=== PATIENT | male | born 1965 | race Caucasian/White ===

== ENCOUNTER 2020-07-07 17:25 | Inpatient (IN) | payer OTHER ==
[~2020-07-07] VITALS: Ht 180.3 cm; Wt 81.8 kg
[2020-07-07] MEDS ORDERED: MIDAZOLAM HCL 10 ML IV ONE (17:31)
[2020-07-07] MEDS ORDERED: SUCCINYLCHOLINE CHLORIDE 20 MG/ML 10ML VIAL IV ONE (17:32)
[2020-07-07] MEDS ORDERED: MIDAZOLAM DRIP 50 mg/50mL 50 ML IV ONE (17:35)
[2020-07-07] MEDS ORDERED: MIDAZOLAM HCL 5 MG/ML-1ML VIAL IV ONE ×2 (17:35→17:41)
[2020-07-07 17:40] VITALS: BP 128/104
[2020-07-07] MEDS: MIDAZOLAM DRIP 50 mg/50mL 50 ML IV SCH ×2 (18:00→21:02)
[2020-07-07] MEDS ORDERED: PIPERACILLIN-TAZOB 3.375GM 100 ML IV ONE (18:30)
[2020-07-07] MEDS ORDERED: SODIUM BICARBONATE 8.4 % INJ 50ML VIAL IV ONE (18:30)
[2020-07-07] MEDS ORDERED: SODIUM CHLORIDE 0.9% 3,050 ML IV ONE ×5 (18:30)
[2020-07-07] MEDS ORDERED: NOREPINEPHRINE 8 MG/250ML KIT 250 ML IV ONE (18:43)
[2020-07-07] MEDS ORDERED: NOREPINEPHRINE 8 MG/250ML KIT 250 ML IV SCH (18:45)
[2020-07-07 18:52] LABS: Basophils # (auto) 0 10 ^3/uL (0-0.2); Basophils % (auto) 0.3 % (0.0-2.0); Eosinophils # (auto) 0 10 ^3/uL (0-0.8); Hematocrit 41.4 % (41.0-53.0); Hemoglobin 14.1 g/dL (13.5-17.5); Lymphocytes # (auto) 1.1 10 ^3/uL (0.4-5.4); Lymphocytes % (auto) 19.1 % (10.0-50.0); Mean Corpuscular Hgb Conc. 34.1 g/dL (32.0-36.0); Monocytes # (auto) 0.3 10 ^3/uL (0-1.3); Monocytes % (auto) 5.8 % (0.0-12.0); Neutrophils # (auto) 4.4 10 ^3/uL (1.6-8.6); Neutrophils % (auto) 74.8 % (37.0-80.0); Nucleated Red Blood Cells % 0.1 %; Platelet Count (auto) 197 10^3/uL (140-450); Red Blood Cells 4.56 10^6/uL (4.5-5.90); Red Cell Distribution Width 13.3 % (11.8-14.3); White Blood Cell 5.9 10^3/uL (4.4-10.8)
[2020-07-07] MEDS ORDERED: SODIUM CHLORIDE 0.9% 2,000 ML IV ONE (19:00)
[2020-07-07] MEDS ORDERED: SODIUM CHLORIDE 0.9% 3,000 ML IV ONE (19:00)
[2020-07-07 19:09] VITALS: BP 84/28
[2020-07-07 19:11] LABS: Albumin 3.2 g/dL (3.4-5.0); Potassium 3.9 mmol/L (3.5-5.1)
[2020-07-07 19:17] LABS: BUN/Creatinine Ratio 9.6; Bilirubin, Total 0.8 mg/dL (0.2-1.0); Total Protein 5.6 g/dL (6.4-8.2)
[2020-07-07 19:27] LABS: Urine Bacteria FEW /hpf (None Seen); Urine Blood 2+ /uL (Negative); Urine Hyaline Cast MANY /lpf (0 - 2); Urine Mucus FEW (None Seen); Urine Specific Gravity 1.033 (1.001-1.035); Urine WBC 8 /hpf (0 - 3)
[2020-07-07 19:37] LABS: Alcohol, Urine < 3.0 mg/dL (0-10); Amphetamine Screen, Urine NEGATIVE (NEGATIVE); Barbiturate Scree,Urine NEGATIVE (NEGATIVE); Benzodiazephine Screen, Urine NEGATIVE (NEGATIVE); Cannabinoid Screen, Urine NEGATIVE (NEGATIVE); Cocaine Screen, Urine NEGATIVE (NEGATIVE); Opiate Scree,Urine NEGATIVE (NEGATIVE); Phencyclidine Screen, Urine NEGATIVE (NEGATIVE)
[2020-07-07 19:47] LABS: CRP High Sensitivity 0.29 mg/dL (< 0.3)
[2020-07-07 19:57] LABS: Lactic Acid w/Reflex 5.3 mmol/L (0.4-2.0)
[2020-07-07 20:30] VITALS: BP 93/54
[2020-07-07] MEDS: NOREPINEPHRINE BITARTRATE 16 MG in SODIUM CHL 0.9% 250 ML IV SCH (21:01)
[2020-07-07] MEDS ORDERED: VANCOMYCIN PER PHARMACY 0 MG IV SCH (21:15)
[2020-07-07] MEDS ORDERED: DEXTROSE (50%) 50ML SYRG IV PRN (21:15)
[2020-07-07] MEDS ORDERED: NITROGLYCERIN 0.4 MG SL TAB SL PRN (21:15)
[2020-07-07] MEDS ORDERED: MORPHINE SULF INJ 2 MG/ML SYRINGE 1ML IV PRN (21:15)
[2020-07-07] MEDS ORDERED: ONDANSETRON HCL 4 MG/2 ML VIAL IV PRN (21:15)
[2020-07-07] MEDS ORDERED: VANCOMYCIN 1GM/250ML 250 ML IV ONE (21:30)
[2020-07-07 22:04] LABS: Anion Gap 8 (5-15); BUN/Creatinine Ratio 10.8; Blood Urea Nitrogen 28 mg/dL (7-18); Calcium 6.6 mg/dL (8.5-10.1); Carbon Dioxide 21 mmol/L (21-32); Chloride 105 mmol/L (98-107); GFR African American 33 mL/min; GFR Non-African American 28 mL/min; Glucose 170 mg/dL (74-106); Potassium 3.9 mmol/L (3.5-5.1); Sodium 134 mmol/L (136-145)
[2020-07-07 22:20] VITALS: BP 100/56
[2020-07-07] MEDS: SODIUM CHLORIDE 0.9% 1,000 ML IV SCH (22:26)
[2020-07-07] MEDS: ATORVASTATIN 20 MG TAB PO SCH (22:27)
[2020-07-07] MEDS ORDERED: ENOXAPARIN SOD 100 MG/1 ML SYRINGE SC SCH (22:30)
[2020-07-07 22:42] LABS: INR 1.24 (0.9-1.15); Partial Thromboplastin Time 23.4 sec (23.0-31.2)
[2020-07-07] MEDS ORDERED: HEPARIN DRIP/D5W 100UNITS/ML 250 ML IV SCH ×2 (23:00)
[2020-07-07] MEDS ORDERED: HEPARIN SODIUM (PORCINE) 5000 UNITS/ML 1ML VIAL IV ONE (23:00)
[2020-07-07] MEDS: fentaNYL Drip 2500mCg/250mlNS 250 ML IV SCH (23:50)
[2020-07-07] MEDS: PIPERACILLIN-TAZOB 2.25GM 50 ML IV SCH (23:58)
[2020-07-08] VITALS (40 sets, daily range): BP systolic 82–116; BP diastolic 47–71
[2020-07-08] MEDS: ACCU-CHEK COMFORT CURVE STRIP VI SCH ×4 (00:13→17:21)
[2020-07-08] MEDS: InsuLIN REG 1unit/0.01ml Soln (100units/ml) SC SCH ×4 (00:13→18:36)
[2020-07-08] MEDS: MIDAZOLAM DRIP 50 mg/50mL 50 ML IV SCH ×2 (01:48→23:13)
[2020-07-08 05:58] LABS: Albumin 3.1 g/dL (3.4-5.0); BUN/Creatinine Ratio 19.7; Calcium 6.4 mg/dL (8.5-10.1)
[2020-07-08 05:59] LABS: Potassium 2.7 mmol/L (3.5-5.1)
[2020-07-08 06:07] LABS: Bilirubin, Total 2.1 mg/dL (0.2-1.0); Total Protein 5.8 g/dL (6.4-8.2)
[2020-07-08] MEDS: PIPERACILLIN-TAZOB 2.25GM 50 ML IV SCH ×3 (06:45→17:21)
[2020-07-08] MEDS: PHENYLEPHRINE INJ 40 MG in SODIUM CHL 0.9% 250 ML IV SCH ×2 (07:31→12:15)
[2020-07-08] MEDS: POTASSIUM CHL 20MEQ/100ML 100 ML IV SCH ×2 (07:42→09:39)
[2020-07-08] MEDS: SODIUM CHLORIDE 0.9% 1,000 ML IV SCH ×2 (07:42→17:07)
[2020-07-08 08:01] LABS: Basophils # (auto) 0 10 ^3/uL (0-0.2); Basophils % (auto) 0.1 % (0.0-2.0); Eosinophils # (auto) 0 10 ^3/uL (0-0.8); Hematocrit 42.8 % (41.0-53.0); Hemoglobin 14.5 g/dL (13.5-17.5); Lymphocytes # (auto) 0.6 10 ^3/uL (0.4-5.4); Mean Corpuscular Hemoglobin 30.5 pg (28.0-32.0); Mean Corpuscular Hgb Conc. 33.9 g/dL (32.0-36.0); Mean Corpuscular Volume 89.9 fL (80.0-100.0); Monocytes # (auto) 1.5 10 ^3/uL (0-1.3); Monocytes % (auto) 12.8 % (0.0-12.0); Neutrophils % (auto) 82.1 % (37.0-80.0); Nucleated Red Blood Cells % 0.1 %; Platelet Count (auto) 91 10^3/uL (140-450); Red Blood Cells 4.76 10^6/uL (4.5-5.90); Red Cell Distribution Width 13.4 % (11.8-14.3); White Blood Cell 12.1 10^3/uL (4.4-10.8)
[2020-07-08 08:23] LABS: Magnesium 1.9 mg/dL (1.6-2.6)
[2020-07-08] MEDS ORDERED: POTASSIUM EFFERVESENT TAB 25 MEQ GT ONE (08:30)
[2020-07-08] MEDS ORDERED: SODIUM CHLORIDE 0.9% 1,000 ML IV ONE (08:45)
[2020-07-08] MEDS: ASPirin 81 mg TAB PO SCH (09:04)
[2020-07-08 09:23] LABS: INR 2.01 (0.9-1.15)
[2020-07-08 09:26] LABS: Partial Thromboplastin Time > 139.0 sec (23.0-31.2)
[2020-07-08] MEDS: VANCOMYCIN 1GM/250ML 250 ML IV SCH ×2 (11:09→23:13)
[2020-07-08] MEDS ORDERED: SODIUM BICARBONATE 50ML VIAL 150 ML in SODIUM CHL 0.9% 1,000 ML IV ONE (12:00)
[2020-07-08] MEDS ORDERED: SODIUM BICARBONATE 50ML VIAL 150 ML in SODIUM CHLORIDE 0.9% 1,000 ML IV ONE (12:15)
[2020-07-08] MEDS ORDERED: IOHEXOL 350 MG/ML 100ML IJ ONE (12:20)
[2020-07-08] MEDS: fentaNYL Drip 2500mCg/250mlNS 250 ML IV SCH (19:00)
[2020-07-08] MEDS ORDERED: SODIUM BICARBONATE 50ML VIAL 75 ML in SOD CHL 0.45% 1,000 ML IV SCH (19:15)
[2020-07-08 23:04] LABS: Basophils # (auto) 0 10 ^3/uL (0-0.2); Eosinophils # (auto) 0 10 ^3/uL (0-0.8); Hemoglobin 12.1 g/dL (13.5-17.5); Neutrophils # (auto) 11.8 10 ^3/uL (1.6-8.6); Neutrophils % (auto) 81.2 % (37.0-80.0); White Blood Cell 14.5 10^3/uL (4.4-10.8)
[2020-07-08 23:07] LABS: Basophils % (auto) 0.1 % (0.0-2.0); Hematocrit 34.9 % (41.0-53.0); Lymphocytes # (auto) 1.3 10 ^3/uL (0.4-5.4); Lymphocytes % (auto) 8.9 % (10.0-50.0); Mean Corpuscular Hemoglobin 31.6 pg (28.0-32.0); Mean Corpuscular Hgb Conc. 34.8 g/dL (32.0-36.0); Mean Corpuscular Volume 90.8 fL (80.0-100.0); Monocytes # (auto) 1.4 10 ^3/uL (0-1.3); Monocytes % (auto) 9.8 % (0.0-12.0); Platelet Count (auto) 66 10^3/uL (140-450); Red Blood Cells 3.84 10^6/uL (4.5-5.90); Red Cell Distribution Width 13.7 % (11.8-14.3)
[2020-07-08] MEDS: ATORVASTATIN 20 MG TAB PO SCH (23:14)
[2020-07-08] MEDS: ACETAMINOPHEN 325 MG TAB PO PRN (23:15)
[2020-07-09] VITALS (92 sets, daily range): BP systolic 74–120; BP diastolic 41–72
[2020-07-09] MEDS: PIPERACILLIN-TAZOB 2.25GM 50 ML IV SCH ×4 (00:24→13:05)
[2020-07-09] MEDS: ACCU-CHEK COMFORT CURVE STRIP VI SCH ×4 (00:25→17:43)
[2020-07-09] MEDS: SODIUM CHLORIDE 0.9% 1,000 ML IV SCH ×4 (01:44→12:45)
[2020-07-09] MEDS: NOREPINEPHRINE BITARTRATE 16 MG in SODIUM CHL 0.9% 250 ML IV SCH ×3 (01:59→21:55)
[2020-07-09 04:46] LABS: Eosinophils # (auto) 0 10 ^3/uL (0-0.8); Hemoglobin 13.2 g/dL (13.5-17.5); Monocytes # (auto) 1.4 10 ^3/uL (0-1.3); Platelet Count (auto) 56 10^3/uL (140-450)
[2020-07-09 04:48] LABS: Basophils # (auto) 0.1 10 ^3/uL (0-0.2); Basophils % (auto) 0.4 % (0.0-2.0); Hematocrit 39.6 % (41.0-53.0); Lymphocytes # (auto) 1.5 10 ^3/uL (0.4-5.4); Lymphocytes % (auto) 9.6 % (10.0-50.0); Mean Corpuscular Hemoglobin 30.8 pg (28.0-32.0); Mean Corpuscular Hgb Conc. 33.4 g/dL (32.0-36.0); Mean Corpuscular Volume 92.1 fL (80.0-100.0); Monocytes % (auto) 9.3 % (0.0-12.0); Neutrophils # (auto) 12.5 10 ^3/uL (1.6-8.6); Neutrophils % (auto) 80.7 % (37.0-80.0); Nucleated Red Blood Cells % 0.1 %; Red Blood Cells 4.29 10^6/uL (4.5-5.90); Red Cell Distribution Width 14.1 % (11.8-14.3); White Blood Cell 15.4 10^3/uL (4.4-10.8)
[2020-07-09 05:06] LABS: Calcium 6.1 mg/dL (8.5-10.1); Potassium 3.9 mmol/L (3.5-5.1)
[2020-07-09] MEDS: InsuLIN REG 1unit/0.01ml Soln (100units/ml) SC SCH ×4 (05:31→17:43)
[2020-07-09] MEDS: MIDAZOLAM DRIP 50 mg/50mL 50 ML IV SCH ×2 (05:32→10:14)
[2020-07-09] MEDS ORDERED: ETAN25IN3 SC (07:30)
[2020-07-09] MEDS ORDERED: ATOR20TA50 PO (07:30)
[2020-07-09] MEDS ORDERED: METF-370 PO (07:30)
[2020-07-09] MEDS ORDERED: CHOL100055 PO (07:30)
[2020-07-09] MEDS: PHENYLEPHRINE INJ 40 MG in SODIUM CHL 0.9% 250 ML IV SCH (08:51)
[2020-07-09] MEDS: ASPirin 81 mg TAB PO SCH (09:57)
[2020-07-09] MEDS: ACETAMINOPHEN 325 MG TAB PO PRN ×2 (10:20→22:26)
[2020-07-09] MEDS: VANCOMYCIN 1GM/250ML 250 ML IV SCH ×2 (11:26→21:00)
[2020-07-09] MEDS ORDERED: PANTOPRAZOLE 40 MG/10 ML VIAL INJ IV ONE (12:45)
[2020-07-09] MEDS: PIPERACILLIN-TAZOB 3.375GM 100 ML IV SCH (18:04)
[2020-07-09 19:16] LABS: INR 1.84 (0.9-1.15); Partial Thromboplastin Time 35.6 sec (23.0-31.2)
[2020-07-09] MEDS: ATORVASTATIN 20 MG TAB PO SCH (21:51)
[2020-07-09] MEDS: fentaNYL Drip 2500mCg/250mlNS 250 ML IV SCH (21:54)
[2020-07-10] VITALS (98 sets, daily range): BP systolic 104–146; BP diastolic 56–77
[2020-07-10] MEDS: SODIUM CHLORIDE 0.9% 1,000 ML IV SCH ×6 (03:45→23:45)
[2020-07-10] MEDS: PIPERACILLIN-TAZOB 3.375GM 100 ML IV SCH ×4 (05:25→17:43)
[2020-07-10] MEDS: ACCU-CHEK COMFORT CURVE STRIP VI SCH ×4 (05:26→17:47)
[2020-07-10] MEDS: InsuLIN REG 1unit/0.01ml Soln (100units/ml) SC SCH ×4 (05:27→17:47)
[2020-07-10] MEDS: VANCOMYCIN 1GM/250ML 250 ML IV SCH ×2 (06:38→16:38)
[2020-07-10 08:16] LABS: Basophils # (auto) 0 10 ^3/uL (0-0.2); Basophils % (auto) 0.2 % (0.0-2.0); Eosinophils # (auto) 0 10 ^3/uL (0-0.8); Mean Corpuscular Hemoglobin 31.4 pg (28.0-32.0); Monocytes # (auto) 0.6 10 ^3/uL (0-1.3); Platelet Count (auto) 48 10^3/uL (140-450); Red Cell Distribution Width 13.7 % (11.8-14.3)
[2020-07-10 08:18] LABS: Hematocrit 31.1 % (41.0-53.0); Hemoglobin 10.8 g/dL (13.5-17.5); Lymphocytes # (auto) 1.2 10 ^3/uL (0.4-5.4); Lymphocytes % (auto) 13.1 % (10.0-50.0); Mean Corpuscular Hgb Conc. 34.8 g/dL (32.0-36.0); Mean Corpuscular Volume 90.2 fL (80.0-100.0); Monocytes % (auto) 6.8 % (0.0-12.0); Neutrophils # (auto) 7.3 10 ^3/uL (1.6-8.6); Neutrophils % (auto) 79.9 % (37.0-80.0); Red Blood Cells 3.44 10^6/uL (4.5-5.90); White Blood Cell 9.2 10^3/uL (4.4-10.8)
[2020-07-10 08:30] LABS: Albumin 2.1 g/dL (3.4-5.0); BUN/Creatinine Ratio 19.3; Calcium 6.7 mg/dL (8.5-10.1); Potassium 3.4 mmol/L (3.5-5.1)
[2020-07-10 08:33] LABS: Bilirubin, Total 1.1 mg/dL (0.2-1.0); Total Protein 4.4 g/dL (6.4-8.2)
[2020-07-10] MEDS ORDERED: POTASSIUM CHL 20MEQ/100ML 100 ML IV ONE (09:45)
[2020-07-10] MEDS: PANTOPRAZOLE 40 MG/10 ML VIAL INJ IV SCH (09:56)
[2020-07-10] MEDS: ASPirin 81 mg TAB PO SCH (10:00)
[2020-07-10] MEDS: NOREPINEPHRINE BITARTRATE 16 MG in SODIUM CHL 0.9% 250 ML IV SCH (10:02)
[2020-07-10] MEDS: PHENYLEPHRINE INJ 40 MG in SODIUM CHL 0.9% 250 ML IV SCH (14:21)
[2020-07-10] MEDS: MIDAZOLAM DRIP 50 mg/50mL 50 ML IV SCH (17:40)
[2020-07-10] MEDS: ACETAMINOPHEN 325 MG TAB PO PRN (17:43)
[2020-07-10] MEDS: fentaNYL Drip 2500mCg/250mlNS 250 ML IV SCH (21:46)
[2020-07-11] VITALS (103 sets, daily range): BP systolic 93–175; BP diastolic 50–97
[2020-07-11] MEDS: PIPERACILLIN-TAZOB 3.375GM 100 ML IV SCH ×5 (00:12→23:39)
[2020-07-11] MEDS: ACCU-CHEK COMFORT CURVE STRIP VI SCH ×5 (00:12→23:38)
[2020-07-11] MEDS: SODIUM CHLORIDE 0.9% 1,000 ML IV SCH ×2 (00:14→00:16)
[2020-07-11] MEDS: VANCOMYCIN 1GM/250ML 250 ML IV SCH ×3 (03:00→22:12)
[2020-07-11 05:43] LABS: Calcium 6.9 mg/dL (8.5-10.1); Potassium 3.3 mmol/L (3.5-5.1)
[2020-07-11] MEDS: InsuLIN REG 1unit/0.01ml Soln (100units/ml) SC SCH ×6 (06:00→23:38)
[2020-07-11] MEDS: PHENYLEPHRINE INJ 40 MG in SODIUM CHL 0.9% 250 ML IV SCH (07:01)
[2020-07-11] MEDS: POTASSIUM CHL 20MEQ/100ML 100 ML IV SCH ×2 (09:50→12:03)
[2020-07-11] MEDS: ASPirin 81 mg TAB PO SCH (10:42)
[2020-07-11] MEDS: PANTOPRAZOLE 40 MG/10 ML VIAL INJ IV SCH (10:42)
[2020-07-11] MEDS: SOD CHL 0.9%/ KCL 20MEQ 1,000 ML IV SCH ×3 (12:03→22:12)
[2020-07-11] MEDS: MIDAZOLAM DRIP 50 mg/50mL 50 ML IV SCH (17:40)
[2020-07-11] MEDS ORDERED: DEXTROSE 10% 1,000 ML IV ONE (18:30)
[2020-07-11] MEDS: ACETAMINOPHEN 325 MG TAB PO PRN (20:25)
[2020-07-11] MEDS: fentaNYL Drip 2500mCg/250mlNS 250 ML IV SCH (22:58)
[2020-07-12] VITALS (51 sets, daily range): BP systolic 105–161; BP diastolic 54–93
[2020-07-12 03:09] LABS: Basophils # (auto) 0 10 ^3/uL (0-0.2); Basophils % (auto) 0.2 % (0.0-2.0); Eosinophils # (auto) 0 10 ^3/uL (0-0.8); Eosinophils % (auto) 0.1 % (0.0-7.0); Hematocrit 26.5 % (41.0-53.0); Hemoglobin 9.3 g/dL (13.5-17.5); Lymphocytes # (auto) 0.7 10 ^3/uL (0.4-5.4); Lymphocytes % (auto) 13.3 % (10.0-50.0); Mean Corpuscular Hgb Conc. 35.1 g/dL (32.0-36.0); Mean Corpuscular Volume 91.3 fL (80.0-100.0); Monocytes # (auto) 0.4 10 ^3/uL (0-1.3); Neutrophils # (auto) 4.2 10 ^3/uL (1.6-8.6); Neutrophils % (auto) 78.4 % (37.0-80.0); Platelet Count (auto) 82 10^3/uL (140-450); Red Cell Distribution Width 13.2 % (11.8-14.3); White Blood Cell 5.3 10^3/uL (4.4-10.8)
[2020-07-12 03:25] LABS: BUN/Creatinine Ratio 16.3; Magnesium 1.6 mg/dL (1.6-2.6); Potassium 3.2 mmol/L (3.5-5.1)
[2020-07-12 03:30] LABS: Phosphorus 1.5 mg/dL (2.5-4.90)
[2020-07-12] MEDS: VANCOMYCIN 1GM/250ML 250 ML IV SCH ×3 (05:31→20:35)
[2020-07-12] MEDS: InsuLIN REG 1unit/0.01ml Soln (100units/ml) SC SCH ×3 (05:32→18:00)
[2020-07-12] MEDS: PIPERACILLIN-TAZOB 3.375GM 100 ML IV SCH ×4 (05:32→23:45)
[2020-07-12] MEDS: ACCU-CHEK COMFORT CURVE STRIP VI SCH ×4 (05:32→23:45)
[2020-07-12] MEDS: POTASSIUM CHL 20MEQ/100ML 100 ML IV SCH ×3 (09:00→13:00)
[2020-07-12] MEDS ORDERED: MAGNESIUM SULFATE 1GM/100ML 100 ML IV ONE (09:00)
[2020-07-12] MEDS: ASPirin 81 mg TAB PO SCH (10:00)
[2020-07-12] MEDS: PANTOPRAZOLE 40 MG/10 ML VIAL INJ IV SCH (10:00)
[2020-07-12] MEDS: SOD CHL 0.9%/ KCL 20MEQ 1,000 ML IV SCH ×2 (10:49→13:30)
[2020-07-12] MEDS ORDERED: POTASSIUM PHOSPHATE 44 MEQ in D5W 5% 250 ML IV ONE (11:45)
[2020-07-12] MEDS: MIDAZOLAM DRIP 50 mg/50mL 50 ML IV SCH (17:40)
[2020-07-12] MEDS: fentaNYL Drip 2500mCg/250mlNS 250 ML IV SCH (20:35)
[2020-07-12] MEDS: ACETAMINOPHEN 325 MG TAB PO PRN (20:49)
[2020-07-13] VITALS (48 sets, daily range): BP systolic 119–165; BP diastolic 69–100
[2020-07-13] MEDS: VANCOMYCIN 1GM/250ML 250 ML IV SCH ×4 (02:40→19:46)
[2020-07-13] MEDS: PIPERACILLIN-TAZOB 3.375GM 100 ML IV SCH ×4 (05:13→23:52)
[2020-07-13 05:48] LABS: Basophils # (auto) 0 10 ^3/uL (0-0.2); Basophils % (auto) 0.1 % (0.0-2.0); Eosinophils # (auto) 0 10 ^3/uL (0-0.8); Eosinophils % (auto) 0.2 % (0.0-7.0); Hematocrit 28.3 % (41.0-53.0); Lymphocytes # (auto) 0.5 10 ^3/uL (0.4-5.4); Mean Corpuscular Hemoglobin 31.7 pg (28.0-32.0); Mean Corpuscular Hgb Conc. 35.2 g/dL (32.0-36.0); Mean Corpuscular Volume 90.1 fL (80.0-100.0); Monocytes # (auto) 0.6 10 ^3/uL (0-1.3); Monocytes % (auto) 10.2 % (0.0-12.0); Neutrophils # (auto) 4.6 10 ^3/uL (1.6-8.6); Neutrophils % (auto) 81.5 % (37.0-80.0); Platelet Count (auto) 130 10^3/uL (140-450); Red Blood Cells 3.14 10^6/uL (4.5-5.90); Red Cell Distribution Width 13.2 % (11.8-14.3); White Blood Cell 5.7 10^3/uL (4.4-10.8)
[2020-07-13] MEDS: InsuLIN REG 1unit/0.01ml Soln (100units/ml) SC SCH ×5 (06:00→23:59)
[2020-07-13] MEDS: SOD CHL 0.9%/ KCL 20MEQ 1,000 ML IV SCH ×2 (06:10→10:45)
[2020-07-13 06:11] LABS: Calcium 7.7 mg/dL (8.5-10.1); Potassium 3.7 mmol/L (3.5-5.1)
[2020-07-13 06:12] LABS: INR 1.08 (0.9-1.15); Partial Thromboplastin Time 22.5 sec (23.0-31.2)
[2020-07-13 06:13] LABS: BUN/Creatinine Ratio 6.3; Phosphorus 2.2 mg/dL (2.5-4.90)
[2020-07-13] MEDS: ACCU-CHEK COMFORT CURVE STRIP VI SCH ×4 (06:14→23:51)
[2020-07-13] MEDS ORDERED: POTASSIUM PHOSPHATE 22 MEQ in SODIUM CHL 0.9% 100 ML IV ONE (08:30)
[2020-07-13] MEDS ORDERED: LIDOCAINE 2%HCL (LOCAL ANESTH.) INJ 20ML MDV ONE (08:38)
[2020-07-13] MEDS ORDERED: KCL 20 MEQ IV SCH (08:45)
[2020-07-13] MEDS ORDERED: SOD CHL IV SCH (08:45)
[2020-07-13] MEDS ORDERED: POTASSIUM CHLORIDE IV SCH (08:45)
[2020-07-13] MEDS ORDERED: fentaNYL CITRATE 100 MCG/2 ML VL ONE (09:42)
[2020-07-13] MEDS ORDERED: HEPARIN SODIUM (PORCINE) 5000 UNITS/ML 1ML VIAL ONE (09:42)
[2020-07-13] MEDS ORDERED: ANGIOMAX 250 MG VIAL IV ONE (09:42)
[2020-07-13] MEDS ORDERED: VERAPAMIL 2.5MG/ML INJ 2ML VIAL IV ONE (09:42)
[2020-07-13] MEDS ORDERED: MIDAZOLAM HCL 1MG/1ML-2 ML VIAL ONE (09:43)
[2020-07-13] MEDS ORDERED: SODIUM CHL 0.9% 0 ML ONE (09:43)
[2020-07-13] MEDS: ASPirin 81 mg TAB PO SCH (10:00)
[2020-07-13] MEDS: PANTOPRAZOLE 40 MG/10 ML VIAL INJ IV SCH (10:00)
[2020-07-13] MEDS ORDERED: POTASSIUM CHL 10MEQ/100ML 100 ML IV ONE (11:00)
[2020-07-13] MEDS ORDERED: DOCUSATE SOD 100 MG CAP PO PRN (13:00)
[2020-07-13] MEDS: SENNA 8.6 MG TAB PO PRN (16:11)
[2020-07-13] MEDS: MIDAZOLAM DRIP 50 mg/50mL 50 ML IV SCH (17:40)
[2020-07-14] VITALS (22 sets, daily range): BP systolic 60–156; BP diastolic 26–94
[2020-07-14] MEDS: VANCOMYCIN 1GM/250ML 250 ML IV SCH ×4 (01:35→19:54)
[2020-07-14] MEDS: SOD CHL 0.9%/ KCL 20MEQ 1,000 ML IV SCH ×2 (03:25→20:05)
[2020-07-14] MEDS: ACCU-CHEK COMFORT CURVE STRIP VI SCH ×3 (05:30→17:38)
[2020-07-14] MEDS: PIPERACILLIN-TAZOB 3.375GM 100 ML IV SCH ×3 (05:31→17:35)
[2020-07-14] MEDS: InsuLIN REG 1unit/0.01ml Soln (100units/ml) SC SCH ×3 (05:42→17:38)
[2020-07-14 06:17] LABS: Basophils # (auto) 0 10 ^3/uL (0-0.2); Basophils % (auto) 0.1 % (0.0-2.0); Eosinophils # (auto) 0 10 ^3/uL (0-0.8); Eosinophils % (auto) 0.7 % (0.0-7.0); Hematocrit 28.9 % (41.0-53.0); Hemoglobin 10.1 g/dL (13.5-17.5); Lymphocytes # (auto) 0.5 10 ^3/uL (0.4-5.4); Lymphocytes % (auto) 7.6 % (10.0-50.0); Mean Corpuscular Hemoglobin 31.8 pg (28.0-32.0); Mean Corpuscular Hgb Conc. 34.8 g/dL (32.0-36.0); Mean Corpuscular Volume 91.2 fL (80.0-100.0); Monocytes # (auto) 0.7 10 ^3/uL (0-1.3); Monocytes % (auto) 9.9 % (0.0-12.0); Neutrophils # (auto) 5.6 10 ^3/uL (1.6-8.6); Neutrophils % (auto) 81.7 % (37.0-80.0); Platelet Count (auto) 213 10^3/uL (140-450); Red Blood Cells 3.17 10^6/uL (4.5-5.90); Red Cell Distribution Width 13.2 % (11.8-14.3); White Blood Cell 6.8 10^3/uL (4.4-10.8)
[2020-07-14 06:37] LABS: BUN/Creatinine Ratio 6.8; Calcium 7.6 mg/dL (8.5-10.1); Potassium 3.9 mmol/L (3.5-5.1)
[2020-07-14] MEDS: ASPirin 81 mg TAB PO SCH (09:42)
[2020-07-14] MEDS: PANTOPRAZOLE 40 MG/10 ML VIAL INJ IV SCH (09:43)
[2020-07-15] MEDS: PIPERACILLIN-TAZOB 3.375GM 100 ML IV SCH ×4 (00:22→19:57)
[2020-07-15] MEDS: ACCU-CHEK COMFORT CURVE STRIP VI SCH ×4 (00:22→19:57)
[2020-07-15] MEDS: VANCOMYCIN 1GM/250ML 250 ML IV SCH ×4 (01:43→21:51)
[2020-07-15 05:40] VITALS: BP 133/81
[2020-07-15] MEDS: InsuLIN REG 1unit/0.01ml Soln (100units/ml) SC SCH ×4 (06:00→18:00)
[2020-07-15 07:18] LABS: Basophils # (auto) 0 10 ^3/uL (0-0.2); Basophils % (auto) 0.2 % (0.0-2.0); Eosinophils # (auto) 0.1 10 ^3/uL (0-0.8); Hematocrit 29.6 % (41.0-53.0); Hemoglobin 10.4 g/dL (13.5-17.5); Lymphocytes # (auto) 0.6 10 ^3/uL (0.4-5.4); Lymphocytes % (auto) 8.6 % (10.0-50.0); Mean Corpuscular Hemoglobin 32.1 pg (28.0-32.0); Mean Corpuscular Volume 91.7 fL (80.0-100.0); Monocytes # (auto) 0.6 10 ^3/uL (0-1.3); Monocytes % (auto) 9.4 % (0.0-12.0); Neutrophils # (auto) 5.4 10 ^3/uL (1.6-8.6); Neutrophils % (auto) 80.8 % (37.0-80.0); Platelet Count (auto) 239 10^3/uL (140-450); Potassium 3.9 mmol/L (3.5-5.1); Red Blood Cells 3.23 10^6/uL (4.5-5.90); Red Cell Distribution Width 13.5 % (11.8-14.3); White Blood Cell 6.7 10^3/uL (4.4-10.8)
[2020-07-15 07:22] LABS: BUN/Creatinine Ratio 8.2; Calcium 7.9 mg/dL (8.5-10.1)
[2020-07-15 09:00] VITALS: BP 140/77
[2020-07-15] MEDS: ASPirin 81 mg TAB PO SCH (10:29)
[2020-07-15] MEDS: PANTOPRAZOLE 40 MG/10 ML VIAL INJ IV SCH (10:29)
[2020-07-15] MEDS ORDERED: LIDOCAINE 2% JELLY 11ml (GLYDO) UR ONE (12:00)
[2020-07-15 13:00] VITALS: BP 151/93
[2020-07-15] MEDS: SOD CHL 0.9%/ KCL 20MEQ 1,000 ML IV SCH (13:25)
[2020-07-15] MEDS ORDERED: LIDOCAINE 2%HCL (LOCAL ANESTH.) INJ 20ML MDV ONE (18:15)
[2020-07-15 22:00] VITALS: BP 145/88
[2020-07-16] MEDS: PIPERACILLIN-TAZOB 3.375GM 100 ML IV SCH ×4 (00:31→17:47)
[2020-07-16] MEDS: ACCU-CHEK COMFORT CURVE STRIP VI SCH ×4 (00:32→17:47)
[2020-07-16] MEDS: VANCOMYCIN 1GM/250ML 250 ML IV SCH ×3 (02:43→16:07)
[2020-07-16 05:00] VITALS: BP 140/81
[2020-07-16] MEDS: InsuLIN REG 1unit/0.01ml Soln (100units/ml) SC SCH ×4 (06:00→18:00)
[2020-07-16] MEDS: SOD CHL 0.9%/ KCL 20MEQ 1,000 ML IV SCH ×2 (07:05→22:00)
[2020-07-16 07:12] LABS: Basophils # (auto) 0 10 ^3/uL (0-0.2); Basophils % (auto) 0.3 % (0.0-2.0); Eosinophils # (auto) 0.1 10 ^3/uL (0-0.8); Hematocrit 29.2 % (41.0-53.0); Lymphocytes # (auto) 0.6 10 ^3/uL (0.4-5.4); Lymphocytes % (auto) 9.8 % (10.0-50.0); Mean Corpuscular Hemoglobin 31.5 pg (28.0-32.0); Mean Corpuscular Hgb Conc. 34.4 g/dL (32.0-36.0); Mean Corpuscular Volume 91.6 fL (80.0-100.0); Monocytes # (auto) 0.6 10 ^3/uL (0-1.3); Monocytes % (auto) 9.8 % (0.0-12.0); Neutrophils # (auto) 4.6 10 ^3/uL (1.6-8.6); Neutrophils % (auto) 79.1 % (37.0-80.0); Nucleated Red Blood Cells % 0.2 %; Platelet Count (auto) 288 10^3/uL (140-450); Red Blood Cells 3.18 10^6/uL (4.5-5.90); Red Cell Distribution Width 13.5 % (11.8-14.3); White Blood Cell 5.9 10^3/uL (4.4-10.8)
[2020-07-16 07:32] LABS: Calcium 7.9 mg/dL (8.5-10.1); Potassium 3.7 mmol/L (3.5-5.1)
[2020-07-16 07:34] LABS: BUN/Creatinine Ratio 7.9
[2020-07-16 09:00] VITALS: BP 147/86
[2020-07-16] MEDS: PANTOPRAZOLE 40 MG/10 ML VIAL INJ IV SCH (10:58)
[2020-07-16] MEDS: ASPirin 81 mg TAB PO SCH (10:58)
[2020-07-16 13:00] VITALS: BP 153/83
[2020-07-16 17:00] VITALS: BP 131/79
[2020-07-16 21:08] VITALS: BP 135/73
[2020-07-17] MEDS: PIPERACILLIN-TAZOB 3.375GM 100 ML IV SCH ×4 (00:05→17:44)
[2020-07-17] MEDS: ACCU-CHEK COMFORT CURVE STRIP VI SCH ×4 (00:06→17:45)
[2020-07-17] MEDS: VANCOMYCIN 1GM/250ML 250 ML IV SCH ×2 (04:20→16:41)
[2020-07-17 05:07] VITALS: BP 148/86
[2020-07-17] MEDS: InsuLIN REG 1unit/0.01ml Soln (100units/ml) SC SCH ×4 (06:00→17:44)
[2020-07-17 09:00] VITALS: BP 143/88
[2020-07-17] MEDS: PANTOPRAZOLE 40 MG/10 ML VIAL INJ IV SCH (09:32)
[2020-07-17] MEDS: ASPirin 81 mg TAB PO SCH (09:32)
[2020-07-17 13:00] VITALS: BP 128/74
[2020-07-17] MEDS: SOD CHL 0.9%/ KCL 20MEQ 1,000 ML IV SCH (15:01)
[2020-07-17 17:00] VITALS: BP 148/89
[2020-07-17 22:00] VITALS: BP 143/78
[2020-07-18] MEDS: ACCU-CHEK COMFORT CURVE STRIP VI SCH ×4 (00:10→18:29)
[2020-07-18] MEDS: PIPERACILLIN-TAZOB 3.375GM 100 ML IV SCH ×2 (00:10→06:09)
[2020-07-18] MEDS: VANCOMYCIN 1GM/250ML 250 ML IV SCH (04:13)
[2020-07-18 05:00] VITALS: BP 141/88
[2020-07-18] MEDS: InsuLIN REG 1unit/0.01ml Soln (100units/ml) SC SCH ×4 (06:00→18:00)
[2020-07-18 06:43] LABS: Albumin 2.5 g/dL (3.4-5.0); Potassium 4.1 mmol/L (3.5-5.1)
[2020-07-18 06:46] LABS: Bilirubin, Total 0.6 mg/dL (0.2-1.0); Total Protein 5.8 g/dL (6.4-8.2)
[2020-07-18] MEDS: SOD CHL 0.9%/ KCL 20MEQ 1,000 ML IV SCH (07:25)
[2020-07-18 09:00] VITALS: BP 132/86
[2020-07-18] MEDS ORDERED: cefTRIAXone 1GM/50ML D5W 50 ML IV ONE (10:00)
[2020-07-18] MEDS: ASPirin 81 mg TAB PO SCH (10:00)
[2020-07-18] MEDS: PANTOPRAZOLE 40 MG/10 ML VIAL INJ IV SCH (10:10)
[2020-07-18 12:19] LABS: Urine Bacteria NONE SEEN /hpf (None Seen); Urine Blood 3+ /uL (Negative); Urine Mucus FEW (None Seen); Urine Specific Gravity 1.013 (1.001-1.035); Urine WBC 17 /hpf (0 - 3)
[2020-07-18 14:41] VITALS: BP 128/79
[2020-07-18] MEDS ORDERED: SUCCINYLCHOLINE CHLORIDE 20 MG/ML 10ML VIAL IV ONE (16:37)
[2020-07-18] MEDS ORDERED: ceFAZolin 1GM/50ML 50 ML IV ONE (16:39)
[2020-07-18] MEDS ORDERED: MEPERIDINE HCL (25 MG/ML) 1ML VIAL ONE (16:41)
[2020-07-18] MEDS ORDERED: MIDAZOLAM HCL 1MG/1ML-2 ML VIAL ONE (16:42)
[2020-07-18] MEDS ORDERED: fentaNYL CITRATE 100 MCG/2 ML VL ONE (16:42)
[2020-07-18] MEDS ORDERED: PROPOFOL 10 MG/ML 20 ML IV ONE (17:11)
[2020-07-18] MEDS ORDERED: DexAMETHasone SOD PHOS 10MG/1ML VIAL INJ ONE (17:11)
[2020-07-18] MEDS ORDERED: MIDAZOLAM HCL 1MG/1ML-2 ML VIAL IV PRN (17:45)
[2020-07-18] MEDS ORDERED: MORPHINE SULFATE 4 MG/ML SYR/VIAL IV PRN (17:45)
[2020-07-18] MEDS ORDERED: hydrALAZINE HCL 20 MG/ML VL IV PRN (17:45)
[2020-07-18] MEDS ORDERED: ePHEDrine SULFATE 50 MG/ML AMP IV PRN (17:45)
[2020-07-18] MEDS ORDERED: LABETALOL HCL 5 MG/ML 4ML SYRINGE IV PRN (17:45)
[2020-07-18] MEDS ORDERED: ONDANSETRON HCL 4 MG/2 ML VIAL IV PRN (17:45)
[2020-07-18] MEDS ORDERED: HYDROmorphone HCL 2 MG/ML VL IV PRN (17:45)
[2020-07-18 22:00] VITALS: BP 133/76
[2020-07-19] MEDS: SOD CHL 0.9%/ KCL 20MEQ 1,000 ML IV SCH ×2 (00:05→17:59)
[2020-07-19 05:00] VITALS: BP 142/81
[2020-07-19] MEDS: InsuLIN REG 1unit/0.01ml Soln (100units/ml) SC SCH ×4 (06:00→17:57)
[2020-07-19] MEDS: ACCU-CHEK COMFORT CURVE STRIP VI SCH ×4 (06:32→17:58)
[2020-07-19 06:43] LABS: BUN/Creatinine Ratio 18.5; Calcium 8.2 mg/dL (8.5-10.1); Potassium 4.1 mmol/L (3.5-5.1)
[2020-07-19 06:46] LABS: Basophils # (auto) 0 10 ^3/uL (0-0.2); Basophils % (auto) 0.1 % (0.0-2.0); Eosinophils # (auto) 0 10 ^3/uL (0-0.8); Hematocrit 30.4 % (41.0-53.0); Hemoglobin 10.4 g/dL (13.5-17.5); Lymphocytes # (auto) 0.5 10 ^3/uL (0.4-5.4); Lymphocytes % (auto) 6.8 % (10.0-50.0); Mean Corpuscular Hemoglobin 31.6 pg (28.0-32.0); Mean Corpuscular Hgb Conc. 34.2 g/dL (32.0-36.0); Mean Corpuscular Volume 92.4 fL (80.0-100.0); Monocytes # (auto) 0.6 10 ^3/uL (0-1.3); Monocytes % (auto) 7.7 % (0.0-12.0); Neutrophils # (auto) 6.2 10 ^3/uL (1.6-8.6); Neutrophils % (auto) 85.4 % (37.0-80.0); Platelet Count (auto) 384 10^3/uL (140-450); Red Blood Cells 3.29 10^6/uL (4.5-5.90); Red Cell Distribution Width 13.9 % (11.8-14.3); White Blood Cell 7.2 10^3/uL (4.4-10.8)
[2020-07-19 08:47] VITALS: BP 150/86
[2020-07-19] MEDS: cefTRIAXone 1GM/50ML D5W 50 ML IV SCH (09:25)
[2020-07-19] MEDS: ASPirin 81 mg TAB PO SCH (09:25)
[2020-07-19] MEDS: PANTOPRAZOLE 40 MG/10 ML VIAL INJ IV SCH (09:25)
[2020-07-20] MEDS: ACCU-CHEK COMFORT CURVE STRIP VI SCH ×4 (00:38→18:39)
[2020-07-20 05:56] LABS: Basophils # (auto) 0 10 ^3/uL (0-0.2); Basophils % (auto) 0.1 % (0.0-2.0); Eosinophils # (auto) 0 10 ^3/uL (0-0.8); Eosinophils % (auto) 0.6 % (0.0-7.0); Hematocrit 31.1 % (41.0-53.0); Hemoglobin 10.5 g/dL (13.5-17.5); Lymphocytes # (auto) 0.8 10 ^3/uL (0.4-5.4); Lymphocytes % (auto) 12.4 % (10.0-50.0); Mean Corpuscular Hemoglobin 31.1 pg (28.0-32.0); Mean Corpuscular Hgb Conc. 33.7 g/dL (32.0-36.0); Mean Corpuscular Volume 92.4 fL (80.0-100.0); Monocytes # (auto) 0.6 10 ^3/uL (0-1.3); Neutrophils # (auto) 5.2 10 ^3/uL (1.6-8.6); Neutrophils % (auto) 77.9 % (37.0-80.0); Platelet Count (auto) 389 10^3/uL (140-450); Red Blood Cells 3.37 10^6/uL (4.5-5.90); White Blood Cell 6.6 10^3/uL (4.4-10.8)
[2020-07-20] MEDS: InsuLIN REG 1unit/0.01ml Soln (100units/ml) SC SCH ×4 (05:56→18:00)
[2020-07-20 06:10] LABS: Calcium 8.2 mg/dL (8.5-10.1); Potassium 3.9 mmol/L (3.5-5.1)
[2020-07-20 06:33] VITALS: BP 150/95
[2020-07-20 09:00] VITALS: BP 147/87
[2020-07-20] MEDS: ASPirin 81 mg TAB PO SCH (09:19)
[2020-07-20] MEDS: cefTRIAXone 1GM/50ML D5W 50 ML IV SCH (09:19)
[2020-07-20] MEDS: PANTOPRAZOLE 40 MG/10 ML VIAL INJ IV SCH (09:19)
[2020-07-20] MEDS: SOD CHL 0.9%/ KCL 20MEQ 1,000 ML IV SCH (09:32)
[2020-07-20] MEDS ORDERED: ASPI81CH43 PO (10:43)
[2020-07-20 13:00] VITALS: BP 147/87
[2020-07-20 22:00] VITALS: BP 144/84
[2020-07-21] MEDS: SOD CHL 0.9%/ KCL 20MEQ 1,000 ML IV SCH ×2 (02:05→16:45)
[2020-07-21] MEDS: InsuLIN REG 1unit/0.01ml Soln (100units/ml) SC SCH ×4 (05:39→16:44)
[2020-07-21] MEDS: ACCU-CHEK COMFORT CURVE STRIP VI SCH ×4 (06:00→16:45)
[2020-07-21 06:04] VITALS: BP 151/91
[2020-07-21 09:00] VITALS: BP 145/88
[2020-07-21] MEDS: PANTOPRAZOLE 40 MG/10 ML VIAL INJ IV SCH (09:24)
[2020-07-21] MEDS: ASPirin 81 mg TAB PO SCH (09:24)
[2020-07-21] MEDS: cefTRIAXone 1GM/50ML D5W 50 ML IV SCH (09:24)
[2020-07-21 13:00] VITALS: BP 143/81
[2020-07-21 17:00] VITALS: BP 152/95
[2020-07-21 22:00] VITALS: BP 148/92
[2020-07-22 05:35] VITALS: BP 148/90
[2020-07-22] MEDS: ACCU-CHEK COMFORT CURVE STRIP VI SCH ×5 (06:00→23:36)
[2020-07-22 08:38] VITALS: BP 149/88
[2020-07-22] MEDS: PANTOPRAZOLE 40 MG/10 ML VIAL INJ IV SCH (10:00)
[2020-07-22] MEDS: cefTRIAXone 1GM/50ML D5W 50 ML IV SCH (10:00)
[2020-07-22] MEDS: ASPirin 81 mg TAB PO SCH (10:00)
[2020-07-22] MEDS: SOD CHL 0.9%/ KCL 20MEQ 1,000 ML IV SCH (11:25)
[2020-07-22] MEDS: InsuLIN REG 1unit/0.01ml Soln (100units/ml) SC SCH ×4 (11:37→23:36)
[2020-07-22 14:02] VITALS: BP 149/91
[2020-07-22 17:24] VITALS: BP 157/94
[2020-07-22 21:46] VITALS: BP 149/94
[2020-07-23] MEDS: SOD CHL 0.9%/ KCL 20MEQ 1,000 ML IV SCH ×2 (04:29→21:08)
[2020-07-23 05:24] VITALS: BP 150/95
[2020-07-23] MEDS: ACCU-CHEK COMFORT CURVE STRIP VI SCH ×3 (05:24→18:00)
[2020-07-23] MEDS: InsuLIN REG 1unit/0.01ml Soln (100units/ml) SC SCH ×3 (05:24→18:00)
[2020-07-23 09:00] VITALS: BP 150/94
[2020-07-23] MEDS: ASPirin 81 mg TAB PO SCH (11:04)
[2020-07-23] MEDS: PANTOPRAZOLE 40 MG/10 ML VIAL INJ IV SCH (11:06)
[2020-07-23] MEDS: cefTRIAXone 1GM/50ML D5W 50 ML IV SCH (11:06)
[2020-07-23 13:00] VITALS: BP 147/93
[2020-07-23 17:05] VITALS: BP 149/91
[2020-07-23 22:00] VITALS: BP 140/88
[2020-07-24] MEDS: ACCU-CHEK COMFORT CURVE STRIP VI SCH ×4 (00:01→17:58)
[2020-07-24 05:00] VITALS: BP 146/92
[2020-07-24] MEDS: InsuLIN REG 1unit/0.01ml Soln (100units/ml) SC SCH ×4 (05:34→17:58)
[2020-07-24 09:00] VITALS: BP 141/93
[2020-07-24] MEDS: PANTOPRAZOLE 40 MG/10 ML VIAL INJ IV SCH (09:47)
[2020-07-24] MEDS: ASPirin 81 mg TAB PO SCH (09:47)
[2020-07-24] MEDS: cefTRIAXone 1GM/50ML D5W 50 ML IV SCH (09:47)
[2020-07-24 13:00] VITALS: BP 126/89
[2020-07-24] MEDS: SOD CHL 0.9%/ KCL 20MEQ 1,000 ML IV SCH (13:25)
[2020-07-24 17:00] VITALS: BP 150/87
[2020-07-24 23:19] VITALS: BP 154/96
[2020-07-25] MEDS: InsuLIN REG 1unit/0.01ml Soln (100units/ml) SC SCH ×4 (05:39→17:20)
[2020-07-25] MEDS: ACCU-CHEK COMFORT CURVE STRIP VI SCH ×4 (05:39→17:20)
[2020-07-25 06:02] VITALS: BP 148/102
[2020-07-25] MEDS: SOD CHL 0.9%/ KCL 20MEQ 1,000 ML IV SCH ×2 (06:05→23:18)
[2020-07-25 08:40] VITALS: BP 139/93
[2020-07-25] MEDS: PANTOPRAZOLE 40 MG/10 ML VIAL INJ IV SCH (09:22)
[2020-07-25] MEDS: ASPirin 81 mg TAB PO SCH (09:22)
[2020-07-25] MEDS: cefTRIAXone 1GM/50ML D5W 50 ML IV SCH (09:22)
[2020-07-25] MEDS: SENNA 8.6 MG TAB PO PRN (09:22)
[2020-07-25 12:48] VITALS: BP 138/97
[2020-07-25 16:48] VITALS: BP 151/96
[2020-07-25 22:00] VITALS: BP 141/95
[2020-07-26] MEDS: ACCU-CHEK COMFORT CURVE STRIP VI SCH ×4 (00:22→17:51)
[2020-07-26 05:45] VITALS: BP 144/96
[2020-07-26] MEDS: InsuLIN REG 1unit/0.01ml Soln (100units/ml) SC SCH ×5 (06:00→23:56)
[2020-07-26 09:00] VITALS: BP 133/92
[2020-07-26] MEDS: ASPirin 81 mg TAB PO SCH (09:23)
[2020-07-26] MEDS: PANTOPRAZOLE 40 MG/10 ML VIAL INJ IV SCH (09:23)
[2020-07-26] MEDS: cefTRIAXone 1GM/50ML D5W 50 ML IV SCH (09:23)
[2020-07-26 12:48] VITALS: BP 133/94
[2020-07-26 17:00] VITALS: BP 127/89
[2020-07-26] MEDS: SOD CHL 0.9%/ KCL 20MEQ 1,000 ML IV SCH (17:51)
[2020-07-26 22:00] VITALS: BP 134/89
[2020-07-27 05:00] VITALS: BP 128/86
[2020-07-27] MEDS: ACCU-CHEK COMFORT CURVE STRIP VI SCH ×4 (06:00→18:24)
[2020-07-27] MEDS: InsuLIN REG 1unit/0.01ml Soln (100units/ml) SC SCH ×3 (06:00→18:00)
[2020-07-27 09:00] VITALS: BP 136/87
[2020-07-27] MEDS: ASPirin 81 mg TAB PO SCH (09:15)
[2020-07-27] MEDS: PANTOPRAZOLE 40 MG/10 ML VIAL INJ IV SCH (09:15)
[2020-07-27] MEDS: cefTRIAXone 1GM/50ML D5W 50 ML IV SCH (09:15)
[2020-07-27] MEDS: SOD CHL 0.9%/ KCL 20MEQ 1,000 ML IV SCH (09:24)
[2020-07-27 13:00] VITALS: BP 136/91
[2020-07-27 16:18] VITALS: BP 135/84
[2020-07-27 21:58] VITALS: BP 131/85
[2020-07-28] MEDS: ACCU-CHEK COMFORT CURVE STRIP VI SCH ×4 (00:08→19:21)
[2020-07-28 04:54] VITALS: BP 133/89
[2020-07-28] MEDS: InsuLIN REG 1unit/0.01ml Soln (100units/ml) SC SCH ×4 (06:00→18:00)
[2020-07-28 09:00] VITALS: BP 125/76
[2020-07-28] MEDS: PANTOPRAZOLE 40 MG/10 ML VIAL INJ IV SCH (10:47)
[2020-07-28] MEDS: ASPirin 81 mg TAB PO SCH (10:47)
[2020-07-28 13:00] VITALS: BP 127/91
[2020-07-28 17:00] VITALS: BP 130/89
[2020-07-28 21:37] VITALS: BP 147/90
[2020-07-29] MEDS: ACCU-CHEK COMFORT CURVE STRIP VI SCH ×5 (00:12→23:28)
[2020-07-29 05:20] VITALS: BP 138/87
[2020-07-29] MEDS: InsuLIN REG 1unit/0.01ml Soln (100units/ml) SC SCH ×4 (06:00→23:28)
[2020-07-29] MEDS: ASPirin 81 mg TAB PO SCH (10:26)
[2020-07-29] MEDS: PANTOPRAZOLE 40 MG/10 ML VIAL INJ IV SCH (10:26)
[2020-07-29 12:30] VITALS: BP 123/88
[2020-07-29 17:23] VITALS: BP 130/86
[2020-07-29] MEDS ORDERED: MIDAZOLAM HCL 1MG/1ML-2 ML VIAL ONE (17:46)
[2020-07-29] MEDS ORDERED: KETAMINE HCL 10 ML ONE (17:46)
[2020-07-29] MEDS ORDERED: ONDANSETRON HCL 4 MG/2 ML VIAL ONE (17:47)
[2020-07-29] MEDS ORDERED: GLYCOPYRROLATE 0.2 MG/ML 1ML VIAL ONE (17:47)
[2020-07-29] MEDS ORDERED: ceFAZolin 1GM/50ML 50 ML IV ONE (17:54)
[2020-07-29] MEDS ORDERED: ACCU-CHEK COMFORT CURVE STRIP VI ONE (19:30)
[2020-07-29] MEDS ORDERED: ONDANSETRON HCL 4 MG/2 ML VIAL IV PRN (19:30)
[2020-07-29] MEDS ORDERED: HYDROmorphone HCL 2 MG/ML VL IV PRN (19:30)
[2020-07-29 22:00] VITALS: BP 132/99
[2020-07-30 05:00] VITALS: BP 127/91
[2020-07-30] MEDS: ACCU-CHEK COMFORT CURVE STRIP VI SCH ×2 (05:29→11:30)
[2020-07-30] MEDS: InsuLIN REG 1unit/0.01ml Soln (100units/ml) SC SCH ×2 (05:29→11:30)
[2020-07-30 08:42] VITALS: BP 139/88
[2020-07-30] MEDS: PANTOPRAZOLE 40 MG/10 ML VIAL INJ IV SCH (09:18)
[2020-07-30] MEDS: ASPirin 81 mg TAB PO SCH (09:18)
[2020-07-30 12:59] VITALS: BP 126/91
== END 2020-07-30 14:15 | DRG 870 ==
LOC: EDBD 17:25 → ER 17:25 → TELE 17:26 → DOU IN ICU 07-08 13:38 → TELE-WESTW 07-13 21:46
PROVIDERS: ADMIT Nurse Practitioner; ATTEND Internal Medicine Pulmonary Disease
PROC: 02HV33Z Insertion of Infusion Device into Superior Vena Cava, Percutaneous Approach (ICD-10-PCS; principal; 2020-07-07)
PROC: 5A1955Z Respiratory Ventilation, Greater than 96 Consecutive Hours (ICD-10-PCS; 2020-07-07)
PROC: 0BH17EZ Insertion of Endotracheal Airway into Trachea, Via Natural or Artificial Opening (ICD-10-PCS; 2020-07-07)
PROC: 4A023N7 Measurement of Cardiac Sampling and Pressure, Left Heart, Percutaneous Approach (ICD-10-PCS; 2020-07-13)
PROC: B2111ZZ Fluoroscopy of Multiple Coronary Arteries using Low Osmolar Contrast (ICD-10-PCS; 2020-07-13)
PROC: B2151ZZ Fluoroscopy of Left Heart using Low Osmolar Contrast (ICD-10-PCS; 2020-07-13)
PROC: 4A033BC Measurement of Arterial Pressure, Coronary, Percutaneous Approach (ICD-10-PCS; 2020-07-13)
PROC: 0T9B30Z Drainage of Bladder with Drainage Device, Percutaneous Approach (ICD-10-PCS; 2020-07-15)
PROC: 0T9B80Z Drainage of Bladder with Drainage Device, Via Natural or Artificial Opening Endoscopic (ICD-10-PCS; 2020-07-18)
PROC: 0TPBX0Z Removal of Drainage Device from Bladder, External Approach (ICD-10-PCS; 2020-07-18)
PROC: 0T9B80Z Drainage of Bladder with Drainage Device, Via Natural or Artificial Opening Endoscopic (ICD-10-PCS; 2020-07-29)
DX: A41.9 Sepsis, unspecified organism (principal); G93.41 Metabolic encephalopathy; R65.21 Severe sepsis with septic shock; I21.4 Non-ST elevation (NSTEMI) myocardial infarction; N17.0 Acute kidney failure with tubular necrosis; J96.01 Acute respiratory failure with hypoxia; T67.01XA Heatstroke and sunstroke, initial encounter; M62.82 Rhabdomyolysis; G93.1 Anoxic brain damage, not elsewhere classified; Z99.11 Dependence on respirator [ventilator] status; N13.8 Other obstructive and reflux uropathy; E86.0 Dehydration; E87.6 Hypokalemia; E66.9 Obesity, unspecified; N18.9 Chronic kidney disease, unspecified; R31.0 Gross hematuria; I25.10 Atherosclerotic heart disease of native coronary artery without angina pectoris; E78.5 Hyperlipidemia, unspecified; E11.22 Type 2 diabetes mellitus with diabetic chronic kidney disease; F17.200 Nicotine dependence, unspecified, uncomplicated; M06.9 Rheumatoid arthritis, unspecified; E83.42 Hypomagnesemia; N32.89 Other specified disorders of bladder; Z53.9 Procedure and treatment not carried out, unspecified reason; Z20.828 Contact with and (suspected) exposure to other viral communicable diseases; N36.5 Urethral false passage; N40.1 Benign prostatic hyperplasia with lower urinary tract symptoms; R13.10 Dysphagia, unspecified; Z82.49 Family history of ischemic heart disease and other diseases of the circulatory system; Z82.5 Family history of asthma and other chronic lower respiratory diseases; Z90.49 Acquired absence of other specified parts of digestive tract; Z79.84 Long term (current) use of oral hypoglycemic drugs
CPT/HCPCS: 10022; 31500; 36415; 36569; 36600; 51702; 70450; 71045; 71275; 72192; 74176; 76705; 77012; 80048; 80053; 80061; 80202; 80307; 81001; 82040; 82550; 82565; 82728; 82805; 82962; 83605; 83615; 83735; 84100; 84132; 84443; 84484; 85025; 85379; 85610; 85730; 86141; 87040; 87070; 87077; 87081; 87186; 87205; 87426; 92610; 93005; 93306; 93458; 93571; 93970; 94002; 94003; 94640; 95819; 97110; 97116; 97530; 99152; 99291; A4618; C1729; C9113; G0378; J0330; J0690; J0696; J1100; J1815; J2250; J2405; J2543; J2704; J3480; J7060